=== PATIENT | male | born 1940 | race Caucasian/White ===

== ENCOUNTER 2017-10-02 07:03 | Observation (INO) | payer MEDICARE, BC ==
[~2017-10-02 07:03] MED LIST: LIDOCAINE 2% (SDV) 5 ML INJ
[2017-10-02] MEDS ORDERED: ROPIVACAINE 0.5 % 30 ML VIAL (09:44)
[2017-10-02] MEDS ORDERED: MIDAZOLAM 1 MG/ML 2 ML INJ (09:45)
[2017-10-02] MEDS ORDERED: MEPERIDINE 25 MG INJ IV (11:00)
[2017-10-02] MEDS ORDERED: KETOROLAC 30 MG INJ IV (11:00)
[2017-10-02] MEDS ORDERED: LABETALOL HCL 20MG INJ IV (11:00)
[2017-10-02] MEDS ORDERED: hydrALAzine 20 MG INJ IV (11:00)
[2017-10-02] MEDS ORDERED: FENTAnyl 50 MCG/ML VIAL IV ×3 (11:00)
[2017-10-02] MEDS ORDERED: ONDANSETRON 4 MG INJ IV ×3 (11:00→14:00)
[2017-10-02] MEDS ORDERED: HYDROmorphONE (0.2 MG/ML) 10ML SYG IV ×3 (11:00)
[2017-10-02] MEDS ORDERED: EPHEDrine SULFATE 50 MG/5 ML SYG IV (11:00)
[2017-10-02] MEDS ORDERED: ALBUTEROL 0.083% (NEB) 2.5 MG/3 ML AMP HHN (11:00)
[2017-10-02] MEDS ORDERED: OXYCODONE/ACETAMINOPHEN (5/325) TAB PO ×3 (11:00→14:00)
[2017-10-02] MEDS ORDERED: MIDAZOLAM 1 MG/ML 2 ML INJ IV (11:00)
[2017-10-02] MEDS ORDERED: CLINDAMYCIN 900 MG/D5W (PMX) 50 ML IVPB (11:28)
[2017-10-02] MEDS ORDERED: ROCURONIUM 50 MG INJ (11:28)
[2017-10-02] MEDS ORDERED: PROPOFOL 20 ML (11:28)
[2017-10-02] MEDS ORDERED: ONDANSETRON 4 MG INJ (11:29)
[2017-10-02] MEDS ORDERED: ACETAMINOPHEN 1000MG/100ML IV 100 ML (11:29)
[2017-10-02] MEDS ORDERED: DEXAMETHASONE 4 MG/ML 1 ML INJ (11:29)
[2017-10-02] MEDS: POLYMYXIN/BACITRACIN 1L IRRIG (11:37)
[2017-10-02] MEDS: ROPIVACAINE 0.5 % 30 ML VIAL (11:57)
[2017-10-02] MEDS: POVIDONE IODINE 10% 28.4 GM OINT (11:58)
[2017-10-02] MEDS ORDERED: LABETALOL HCL 20MG INJ (12:34)
[2017-10-02] MEDS ORDERED: SUGAMMADEX SODIUM 200 MG/2 ML VIAL IV (13:18)
[2017-10-02] MEDS: THROMBIN 5000 UNIT VIAL (13:30)
[2017-10-02] MEDS: CA CHLORIDE 10% 10 ML SYRINGE (13:30)
[2017-10-02] MEDS ORDERED: morphine 10 MG INJ IV ×2 (14:00)
[2017-10-02] MEDS ORDERED: HYDROmorphONE 0.2 MG/ML PCA IV ×3 (14:00→16:30)
[2017-10-02] MEDS ORDERED: DIPHENHYDRAMINE 25 MG CAP PO ×2 (14:00)
[2017-10-02] MEDS ORDERED: CEFAZOLIN 1 GM INJ IV (14:00)
[2017-10-02] MEDS ORDERED: BISACODYL 10 MG SUPP PR (14:00)
[2017-10-02] MEDS: SOD CHLORIDE 0.9% 1,000 ML IV (14:37)
[2017-10-02] MEDS: OXYCODONE/ACETAMINOPHEN (5/325) TAB PO ×2 (16:30→20:29)
[2017-10-02] MEDS: CLINDAMYCIN 600 MG/D5W (PMX) 50 ML IVPB (17:40)
[2017-10-02] MEDS ORDERED: GENTAMICIN 80 MG INJ IVPB (18:00)
[2017-10-02] MEDS: MAGNESIUM OXIDE 400 MG TAB PO (20:30)
[2017-10-02] MEDS: SENNA/DOCUSATE NA (8.6MG/50MG) TAB PO (20:30)
[2017-10-02] MEDS: POTASSIUM CHLORIDE (SR) 10 MEQ TAB PO (20:30)
[2017-10-02] MEDS: METOPROLOL (XL) 25 MG TAB PO (20:31)
[2017-10-03] MEDS: CLINDAMYCIN 600 MG/D5W (PMX) 50 ML IVPB ×2 (00:18→06:24)
[2017-10-03] MEDS: OXYCODONE/ACETAMINOPHEN (5/325) TAB PO ×3 (00:19→09:50)
[2017-10-03] MEDS: SOD CHLORIDE 0.9% 1,000 ML IV (00:19)
[2017-10-03 05:47] LABS: ADD MAN DIFF? NO
[2017-10-03 05:50] LABS: WHITE BLOOD COUNT 18.7 10^3/ul (4.8-10.8)
[2017-10-03 05:50] LABS: ABNORMAL IP MESSAGE 1; BASOPHILS % 0.2 % (0.0-2.0); HEMATOCRIT 45.3 % (42.0-52.0); HEMOGLOBIN 15.3 g/dl (14.0-18.0); LYMPHOCYTES # 1.5 10^3/ul (0.8-2.9); LYMPHOCYTES % 7.8 % (15.0-51.0); MEAN CORPUSCULAR HEMOGLOBIN 28.8 pg (29.0-33.0); MEAN CORPUSCULAR HGB CONC 33.8 g/dl (32.0-37.0); MEAN CORPUSCULAR VOLUME 85.3 fl (82.0-101.0); MONOCYTE # 2.9 10^3/ul (0.3-0.9); MONOCYTES % 15.5 % (0.0-11.0); NEUTROPHIL # 14.2 10^3/ul (1.6-7.5); NEUTROPHILS % 75.5 % (39.0-77.0); PLATELET COUNT 232 10^3/UL (140-415); POSITIVE DIFF @See below; RED BLOOD COUNT 5.31 10^6/ul (4.70-6.10); RED CELL DISTRIBUTION WIDTH 12.9 % (11.5-14.5)
[2017-10-03 06:33] LABS: ANION GAP 17 (8-16); BLOOD UREA NITROGEN 22 mg/dl (7-20); CALCIUM 8.5 mg/dl (8.4-10.2); CARBON DIOXIDE 24 mmol/L (21-31); CHLORIDE 104 mmol/L (97-110); CREATININE 1.08 mg/dl (0.61-1.24); GLUCOSE 148 mg/dl (70-220); POTASSIUM 4.9 mmol/L (3.5-5.1); SODIUM 140 mmol/L (135-144)
[2017-10-03] MEDS: RIVAROXABAN 10 MG TABLET PO ×2 (07:06→09:05)
[2017-10-03] MEDS ORDERED: HYDROCHLOROTHIAZIDE 12.5 MG CAP PO (09:00)
[2017-10-03] MEDS ORDERED: METOPROLOL (XL) 50 MG TAB PO (09:00)
[2017-10-03] MEDS: MAGNESIUM OXIDE 400 MG TAB PO (09:04)
[2017-10-03] MEDS: PANTOPRAZOLE (EC) 40 MG TAB PO (09:05)
[2017-10-03] MEDS: POTASSIUM CHLORIDE (SR) 10 MEQ TAB PO (09:05)
[2017-10-03] MEDS: SENNA/DOCUSATE NA (8.6MG/50MG) TAB PO (09:05)
[2017-10-03] MEDS ORDERED: CLINDAMYCIN 600 MG/D5W (PMX) 50 ML IVPB (14:00)
[2017-10-03] MEDS ORDERED: RIVAROXABAN 10 MG TABLET PO (17:55)
[2017-10-04] MEDS ORDERED: MAGNESIUM HYDROXIDE 30ML CUP PO (21:00)
== END 2017-10-03 12:02 | disposition home or self-care (01) ==
LOC: SDS 07:03 → REC 13:48 → MS1 14:54
DX: S76.112A Strain of left quadriceps muscle, fascia and tendon, initial encounter (principal); M22.42 Chondromalacia patellae, left knee; M94.262 Chondromalacia, left knee; I10 Essential (primary) hypertension; E66.9 Obesity, unspecified; Z68.32 Body mass index [BMI] 32.0-32.9, adult; Z88.0 Allergy status to penicillin
CPT/HCPCS: 27385; 73562; 80048; 85025; 86999; 97161; 99217